=== PATIENT | female | born 1975 | race Caucasian/White ===

== ENCOUNTER 2023-10-26 13:46 | Inpatient (IN) | payer BC ==
[2023-10-26 14:25] LABS: Absolute Lymphocytes (CBC) 2.1 K/uL (0.7-4.9); MCV 91.6 fL (80-100); MPV 10.7 fL (7.6-11.3); Platelets 211 thou/uL (152-406); RBC Red Blood Cell Count 5.02 M/uL (3.86-4.86)
[2023-10-26 14:28] LABS: Protime INR 1.08
[2023-10-26 14:37] LABS: Albumin 3.6 g/dL (3.4-5.0); Bilirubin Total 1.8 mg/dL (0.2-1.0); Potassium 2.8 mEq/L (3.5-5.1); Protein, Total 8.3 g/dL (6.4-8.2)
[2023-10-26 14:39] LABS: Specific Gravity 1.026 (1.005-1.030); Transitional Epithelial <5 /HPF (None Seen); Urine Bacteria <20 /HPF (<20); Urine Bilirubin 1+ (Negative); Urine Blood 2+ (Negative); Urine Clarity Turbid (Clear); Urine Color Yellow (Yellow); Urine Glucose NEGATIVE (Negative); Urine Mucus 2+ /HPF (None Seen); Urine Protein 1+ (Negative); Urine RBC 21-50 /HPF (None Seen); Urine Urobilinogen 1+ (Normal); Urine pH 6.5 (5.0-7.0)
[2023-10-26 14:42] LABS: Specific Gravity 1.026 (1.005-1.030)
[2023-10-26] MEDS ORDERED: MORPHINE 2 MG/ML SYR ONE (15:06)
[2023-10-26] MEDS ORDERED: ONDANSETRON 4 MG/2 ML VIAL ONE ×2 (15:06→17:34)
--- NOTE | 2023-10-26 15:11 | RAD REPORT ---
EXAM DESCRIPTION: CT - Head Brain Wo Cont - 10/26/2023 3:01 pm CLINICAL HISTORY: AMS Headache, drowsiness, altered consciousness COMPARISON: No comparisons TECHNIQUE: All CT scans are performed using dose optimization technique as appropriate and may inclu de automated exposure control or mA/KV adjustment according to patient size. FINDINGS: No intracranial hemorrhage, hydrocephalus or extra-axial fluid collection.No areas of brai n edema or evidence of midline shift. The paranasal sinuses and mastoids are clear. The calvarium is intact. IMPRESSION: No acute intracranial abnormality.
--- NOTE | 2023-10-26 15:15 | RAD REPORT ---
EXAM DESCRIPTION: CTAbdomen Pelvis W Contrast - 10/26/2023 3:04 pm CLINICAL HISTORY: Abdominal pain. ABD PAIN COMPARISON: No comparisons TECHNIQUE: Biphasic CT imaging of the abdomen and pelvis was performed with 100 ml non-ionic IV cont rast. All CT scans are performed using dose optimization technique as appropriate and may include automated exposure control or mA/KV adjustment according to patient size. FINDINGS: The lung bases are clear. The liver is diffusely fatty. Cholecystectomy. Spleen, pancreas, adrenal glands and kidneys are withi n normal limits. No bowel obstruction, free air, free fluid or abscess. Mild thickening of the colon is seen particula rly the descending colon and rectosigmoid colon. The appendix is normal. No evidence of significant lymphadenopathy. No suspicious bony findings. IMPRESSION: Mild thickening of the descending colon and rectosigmoid colon likely indicates colitis. Mild diffuse fatty liver.
--- NOTE | 2023-10-26 15:27 | EDPHYS ---
Physician Documentation [facility] Name: Verónica Andraed Age: 48 yrs Sex: Female : 1975 Arrival Date: 10/26/2023 Time: 13:46 Bed 2 Private MD: ED Physician Shen Tejeda HPI: 10/26 13:55 This 48 yrs old Female presents to ER via EMS with complaints of AMS. rn 13:55 The patient presents with decreased responsiveness. Onset: The symptoms/episode rn began/occurred just prior to arrival. Associated signs and symptoms: Pertinent positives: abdominal pain. Current symptoms: In the emergency department the patient's symptoms have improved. It is unknown whether or not the patient has had similar symptoms in the past. Patient brought in by EMS for decreased responsiveness. Had walked into the GI clinic for evaluation, no seizure activity noted but then patient showed decreased level of consciousness. Patient with history of seizures but no seizure activity noted per EMS. Unknown what medication she takes. Was recently seen at outside ER and diagnosed with dehydration. EMS did not administer medication. Patient did not have a procedure or medication administered today. Patient now starting to move and respond a little bit more. Seems possibly postictal. 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 - Social history:: Smoking status: Patient reports the use of cigarette tobacco products, smokes one pack cigarettes per day. - Family history:: not pertinent. - Hospitalizations: : No recent hospitalization is reported. ROS: 13:55 Constitutional: Negative for fever, chills, and weight loss, Neck: Negative for injury, rn pain, and swelling, Cardiovascular: Negative for chest pain, palpitations, and edema, Respiratory: Negative for shortness of breath, cough, wheezing, and pleuritic chest pain, Abdomen/GI: Positive for abdominal pain Exam: 13:55 Constitutional: This is a well developed, well nourished patient who is awake, slow to rn respond, but does answer questions and follow commands. Appears postictal. Head/Face: Normocephalic, atraumatic. Eyes: Pupils equal round and reactive to light, extra-ocular motions intact. Neck: No meningismus Chest/axilla: Normal chest wall appearance and motion. Nontender with no deformity. No lesions are appreciated. Cardiovascular: Tachycardic, regular. No pulse deficits. Respiratory: No increased work of breathing, no retractions or nasal flaring. Abdomen/GI: Soft, mild suprapubic tenderness, no distention Skin: Warm, dry MS/ Extremity: Pulses equal, no cyanosis. Neuro: Awake and alert, GCS 15 Vital Signs: 13:51 BP 111 / 78; Pulse 105; Resp 18; Temp 98.4; Pulse Ox 98% on R/A; Weight 63.05 kg; aa5 Height 5 ft. 4 in. ; Pain 4/10; 14:00 BP 110 / 66; Pulse 107; Resp 24; Pulse Ox 98% on R/A; me1 15:31 BP 119 / 89; Pulse 89; Resp 12; Pulse Ox 100% on R/A; me1 16:00 BP 126 / 82; Pulse 84; Resp 17; Pulse Ox 100% on R/A; me1 17:00 BP 95 / 64; Pulse 75; Resp 15; Pulse Ox 100% on R/A; me1 18:46 BP 103 / 51; Pulse 81; Resp 17; Pulse Ox 100% on R/A; me1 19:00 BP 96 / 72; Pulse 73; Resp 16; Pulse Ox 100% on R/A; me1 13:51 Body Mass Index 23.86 (63.05 kg, 162.56 cm) aa5 13:51 Pain Scale: Adult aa5 MDM: 13:47 Patient medically screened. rn 14:04 ED course: arrived and states that he did witness a tonic-clonic seizure in the rn clinic. He is not sure why we were told that she did not have a seizure. States this is typical for her postictal period. Patient is more alert and talking better now. States that she does not take seizure medication. States she sees Dr. Valentine for neurology, thinks that these are stress-induced and not true seizures so has not put her on medication. states that she has been having some GI issues lately with diarrhea and lower abdominal pain without clear etiology and that is why she was at the GI clinic today.. 15:25 Differential Diagnosis: CVA, electrolyte abnormality, hypoglycemia, intracranial bleed, rn seizure, UTI, volume depletion. Data reviewed: vital signs, nurses notes, lab test result(s), radiologic studies, CT scan, and as a result, I will admit patient. Consideration of Admission/Observation Patient was admitted/placed on observation. Escalation of care including admission/observation considered. Management of patient was discussed with the following: Hospitalist: Will see and admit patient. Care significantly affected by the following chronic conditions: Seizure disorder. Counseling: I had a detailed discussion with the patient and/or guardian regarding the historical points, exam findings, and any diagnostic results supporting the discharge/admit diagnosis, lab results, radiology results, the need for further work-up and treatment in the hospital. Response to treatment: the patient's symptoms have mildly improved after treatment, and as a result, I will admit patient. ED course: Patient no longer postictal, near baseline but still reports nausea and persistent pain. CT shows colitis. Will admit to hospitalist service for failure of outpatient therapy as was sent home with medication from outside hospital on Tuesday. Urine shows 3+ ketones, hypokalemia, still tachycardic. Will continue to hydrate and put on antibiotics.. 10/26 13:49 Order name: CBC with Diff rn 10/26 13:49 Order name: Protime (+inr) rn 10/26 13:49 Order name: Ptt, Activated rn 10/26 13:49 Order name: Test, Urine; Complete Time: 14:46 rn 10/26 13:49 Order name: Urinalysis w/ reflexes; Complete Time: 14:46 rn 10/26 13:49 Order name: Urine Drug Screen rn 10/26 13:49 Order name: CMP rn 10/26 13:49 Order name: Lipase rn 10/26 14:12 Order name: Comprehensive Metabolic Panel; Complete Time: 14:46 EDMS 10/26 14:12 Order name: Lipase; Complete Time: 14:46 EDMS 10/26 14:12 Order name: CBC with Automated Diff; Complete Time: 14:46 EDMS 10/26 14:12 Order name: Protime (+INR); Complete Time: 14:46 EDMS 10/26 14:12 Order name: PTT, Activated Partial Thromb; Complete Time: 14:46 EDMS 10/26 14:38 Order name: Glucose, Ancillary Testing; Complete Time: 14:46 EDMS 10/26 16:21 Order name: Magnesium la1 10/26 16:24 Order name: C.difficile la1 10/26 16:24 Order name: Stool Culture la1 10/26 16:24 Order name: Ova And Parasites la1 10/26 17:14 Order name: Magnesium EDMS 10/26 13:49 Order name: CT Head Brain wo Cont; Complete Time: 15:17 rn 10/26 13:49 Order name: CT Abd/Pelvis - IV Contrast Only; Complete Time: 15:17 rn 10/26 13:49 Order name: IV Start; Complete Time: 14:21 rn 10/26 13:49 Order name: Labs collected and sent; Complete Time: 14:21 rn 10/26 13:49 Order name: Glucose Level; Complete Time: 14:27 rn 10/26 13:49 Order name: Cardiac monitoring; Complete Time: 14:27 rn 10/26 13:49 Order name: O2 Sat Monitoring; Complete Time: 14:21 rn Administered Medications: 14:56 Drug: Ondansetron IVP 4 mg IVP once; over 2 minutes Route: IVP; Site: left antecubital; ll1 15:38 Follow up: Response: No adverse reaction; No change in condition me1 14:56 Drug: morphine IVP or IV 2 mg IVP once over 4 mins {Note: Pain 9/10, RASS 0.} Route: ll1 IVP; Infused Over: 4 mins; Site: left antecubital; 15:38 Follow up: Response: No adverse reaction; No change in condition me1 15:37 Drug: Piperacillin-Tazobactam IVPB 3.375 grams IVPB once over 60 mins; (mix in NS 100 me1 mL) Route: IVPB; Infused Over: 60 mins; Site: left antecubital; 16:37 Follow up: Response: No adverse reaction; IV Status: Completed infusion aa5 16:58 Drug: Pantoprazole IVP 40 mg IVP once Route: IVP; Site: left antecubital; aa5 17:37 Follow up: Response: No adverse reaction aa5 16:59 Drug: Potassium Chloride IV 20 mEq IV at calculated rate once; administer over 1-2 aa5 hours Route: IV; Rate: calculated rate; Site: left antecubital; 18:57 Follow up: Response: No adverse reaction; IV Status: Completed infusion aa5 16:59 Drug: NS 0.9% IV 1000 ml IV at 1000 ml once Route: IV; Rate: 1000 ml; Site: left aa5 antecubital; 19:07 Follow up: IV Status: Completed infusion me1 19:08 Follow up: Response: No adverse reaction me1 16:59 Drug: NS 0.9% IV 1000 ml IV at 125 ml/hr continuous Route: IV; Rate: 125 ml/hr; Site: aa5 left antecubital; 19:12 Follow up: IV Status: Completed infusion me1 17:00 Not Given (on back order per pharmacyy): [id number] mg IVP once aa5 17:21 Drug: morphine IVP or IV 4 mg IVP once over 4 mins Route: IVP; Infused Over: 4 mins; aa5 Site: left antecubital; 17:37 Follow up: Response: No adverse reaction; Pain is decreased aa5 17:22 Drug: Ondansetron IVP 4 mg IVP once; over 2 minutes Route: IVP; Site: left antecubital; aa5 17:36 Follow up: Response: No adverse reaction; Nausea is decreased aa5 18:57 Drug: Potassium Chloride IV 20 mEq IV at calculated rate once; administer over 1-2 aa5 hours Route: IV; Rate: calculated rate; Site: left antecubital; 19:11 Follow up: IV Status: Completed infusion; Patient is demanding to leave AMA. New order me1 for PO potassium ordered in [facility] by Dr Carrizales. Disposition Summary: 10/26/23 15:27 Hospitalization Ordered Notes: Hospitalization Status: Inpatient Admission rn Provider: Brown Tejeda rn Condition: Stable rn Problem: new rn Symptoms: have worsened rn Bed/Room Type: Standard rn Location: Telemetry/MedSurg (Inpatient)(10/26/23 18:23) bd Room Assignment: (10/26/23 19:08) rv1 Diagnosis - Left sided colitis rn - Muscle weakness (generalized) rn - Hypokalemia rn - Dehydration rn - Other seizures rn Forms: - Medication Reconciliation Form rn - SBAR form rn - Leadership Thank You Letter rn Signatures: Dispatcher [employer] EDVerona Dougherty bd Shen Tejeda MD MD rn Calderon, Audri, RN RN aa5 Rodri Javier, WOOL PULLER-C WOOL PULLER-Giovanni1 Ellie Solorzano, RN RN ll1 Karol Pagan rv1 Aure Ross, RN RN me1 Corrections: (The following items were deleted from the chart) 14:00 13:50 Allergies: Unable to obtain; 1 aa5 14:00 13:50 PSHx: Unable to Obtain; [facility] aa5 16:16 15:27 Telemetry/MedSurg (observation) rn bd 16:16 15:27 rn bd 18:23 16:16 [facility] ER HOLD bd bd 18:23 16:16 ERHOLD- bd bd 18:25 18:23 431 bd bd 19:08 18:25 223 bd rv1
--- NOTE | 2023-10-26 15:27 | ER ---
Nurse's Notes 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 No ll1 specific seizure activity noted by EMS. Trying to speak to us upon arrival. Seems postictal. Reports abdominal pain EMS states: HR 110's, vitals otherwise normal. BS 88. Couldn't get IV. Ebola Screen: Patient denies travel to an Ebola-affected area in the 21 days before illness onset. Initial Sepsis Screen: Does the patient meet any 2 criteria? No. Patient's initial sepsis screen is negative. Does the patient have a suspected source of infection? Yes: Acute abdominal pain. Risk Assessment: Do you want to hurt yourself or someone else? Patient reports no desire to harm self or others. Onset of symptoms was October 26, 2023. 13:51 Method Of Arrival: EMS ll1 13:51 Acuity: ROHAN 2 ll1 14:00 Coronavirus screen: Vaccine status: Patient reports being unvaccinated. Client denies aa5 travel out of the [place] in the last 14 days. At this time, the client does not indicate any symptoms associated with coronavirus-19. Triage Assessment: 13:53 General: Appears uncomfortable, ill, Behavior is cooperative, listless. Pain: Complains ll1 of pain in abdomen Quality of pain is described as aching, crampy. Neuro: Level of Consciousness is awake, obeys commands, listless, post ictal, Oriented to person, Weakness Speech is slurred, Facial symmetry appears normal, Reports weakness AMS. GI: Reports lower abdominal pain, upper abdominal pain, cramping. 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 - Social history:: Smoking status: Patient reports the use of cigarette tobacco products, smokes one pack cigarettes per day. - Family history:: not pertinent. - Hospitalizations: : No recent hospitalization is reported. Screenin:40 [facility] ED Fall Risk Assessment (Adult) History of falling in the last 3 months, me1 including since admission No falls in past 3 months (0 pts) Confusion or Disorientation No (0 pts) Intoxicated or Sedated No (0 pts) Impaired Gait No (0 pts) Mobility Assist Device Used No (0 pt) Altered Elimination No (0 pt) Score/Fall Risk Level 0 - 2 = Low Risk Maintained a safe environment, Provided non-skid footwear, Hourly rounding (assess needs \\T\\ fall precautionary measures) done. Abuse screen: Denies threats or abuse. Nutritional screening: No deficits noted. Tuberculosis screening: No symptoms or risk factors identified. Assessment: 14:57 Reassessment: No changes from previously documented assessment. Patient and/or family ll1 updated on plan of care and expected duration. Pain level reassessed. 17:41 General: Appears comfortable, well groomed, well developed, well nourished, Behavior is me1 calm, cooperative, appropriate for age, Reports reports knowing she was going to have a seizure before it happened at the GI doctor's office earlier today. At this time speech is slow but clear. Pain: Denies pain. Neuro: Level of Consciousness is awake, alert, obeys commands, Oriented to person, place, time, situation, Appropriate for age. Cardiovascular: Capillary refill < 3 seconds Patient's skin is warm and dry. Respiratory: Airway is patent Respiratory effort is even, unlabored, Respiratory pattern is regular, symmetrical. GI: Reports upper abdominal pain, diarrhea, nausea. 19:05 General: Patient wants to go home. Discussed the need for admission, verbalized me1 understanding but still wants to go home. Called Dr Carrizales to inform him. He is coming to see the patient. . Vital Signs: 13:51 BP 111 / 78; Pulse 105; Resp 18; Temp 98.4; Pulse Ox 98% on R/A; Weight 63.05 kg; aa5 Height 5 ft. 4 in. ; Pain 4/10; 14:00 BP 110 / 66; Pulse 107; Resp 24; Pulse Ox 98% on R/A; me1 15:31 BP 119 / 89; Pulse 89; Resp 12; Pulse Ox 100% on R/A; me1 16:00 BP 126 / 82; Pulse 84; Resp 17; Pulse Ox 100% on R/A; me1 17:00 BP 95 / 64; Pulse 75; Resp 15; Pulse Ox 100% on R/A; me1 18:46 BP 103 / 51; Pulse 81; Resp 17; Pulse Ox 100% on R/A; me1 19:00 BP 96 / 72; Pulse 73; Resp 16; Pulse Ox 100% on R/A; me1 13:51 Body Mass Index 23.86 (63.05 kg, 162.56 cm) aa5 13:51 Pain Scale: Adult aa5 ED Course: 13:47 Patient arrived in ED. rn 13:47 Shen Tejeda MD is Attending Physician. rn 13:50 Arm band placed on Patient placed in an exam room, on a stretcher. ll1 13:53 Triage completed. ll1 14:01 Aure Ross, WESLEY is Primary Nurse. me1 14:21 CBC with Diff Sent. bc6 14:21 Ptt, Activated Sent. bc6 14:21 Protime (+inr) Sent. bc6 14:21 CBC with Automated Diff Sent. me1 14:21 Protime (+INR) Sent. me1 14:21 PTT, Activated Partial Thromb Sent. me1 14:21 Comprehensive Metabolic Panel Sent. me1 14:21 Lipase Sent. me1 14:21 CMP Sent. me1 14:21 Lipase Sent. me1 14:21 Inserted saline lock: 22 gauge in left antecubital area, using aseptic technique. Blood bc6 collected. 14:21 Test, Urine Sent. me1 14:21 Urinalysis w/ reflexes Sent. me1 14:21 Urine Drug Screen Sent. me1 14:21 Protime (+inr) Sent. me1 14:21 Ptt, Activated Sent. me1 14:21 CBC with Diff Sent. me1 14:27 CT Abd/Pelvis - IV Contrast Only Sent. me1 15:02 CT Head Brain wo Cont In Process Unspecified. EDMS 15:06 CT Abd/Pelvis - IV Contrast Only In Process Unspecified. EDMS 15:26 Brown Tejeda MD is Hospitalizing Provider. rn 17:40 Patient has correct armband on for positive identification. Bed in low position. Call me1 light in reach. Side rails up X 1. Side rails up X2. Provided Education on: POC. Verbalized understanding. . 17:40 No provider procedures requiring assistance completed. me1 19:28 IV discontinued, intact, bleeding controlled, No redness/swelling at site. Pressure me1 dressing applied. Administered Medications: 14:56 Drug: Ondansetron IVP 4 mg IVP once; over 2 minutes Route: IVP; Site: left antecubital; ll1 15:38 Follow up: Response: No adverse reaction; No change in condition me1 14:56 Drug: morphine IVP or IV 2 mg IVP once over 4 mins {Note: Pain 9/10, RASS 0.} Route: ll1 IVP; Infused Over: 4 mins; Site: left antecubital; 15:38 Follow up: Response: No adverse reaction; No change in condition me1 15:37 Drug: Piperacillin-Tazobactam IVPB 3.375 grams IVPB once over 60 mins; (mix in NS 100 me1 mL) Route: IVPB; Infused Over: 60 mins; Site: left antecubital; 16:37 Follow up: Response: No adverse reaction; IV Status: Completed infusion aa5 16:58 Drug: Pantoprazole IVP 40 mg IVP once Route: IVP; Site: left antecubital; aa5 17:37 Follow up: Response: No adverse reaction aa5 16:59 Drug: Potassium Chloride IV 20 mEq IV at calculated rate once; administer over 1-2 aa5 hours Route: IV; Rate: calculated rate; Site: left antecubital; 18:57 Follow up: Response: No adverse reaction; IV Status: Completed infusion aa5 16:59 Drug: NS 0.9% IV 1000 ml IV at 1000 ml once Route: IV; Rate: 1000 ml; Site: left aa5 antecubital; 19:07 Follow up: IV Status: Completed infusion me1 19:08 Follow up: Response: No adverse reaction me1 16:59 Drug: NS 0.9% IV 1000 ml IV at 125 ml/hr continuous Route: IV; Rate: 125 ml/hr; Site: aa5 left antecubital; 19:12 Follow up: IV Status: Completed infusion me1 17:00 Not Given (on back order per pharmacyy): [id number] mg IVP once aa5 17:21 Drug: morphine IVP or IV 4 mg IVP once over 4 mins Route: IVP; Infused Over: 4 mins; aa5 Site: left antecubital; 17:37 Follow up: Response: No adverse reaction; Pain is decreased aa5 17:22 Drug: Ondansetron IVP 4 mg IVP once; over 2 minutes Route: IVP; Site: left antecubital; aa5 17:36 Follow up: Response: No adverse reaction; Nausea is decreased aa5 18:57 Drug: Potassium Chloride IV 20 mEq IV at calculated rate once; administer over 1-2 aa5 hours Route: IV; Rate: calculated rate; Site: left antecubital; 19:11 Follow up: IV Status: Completed infusion; Patient is demanding to leave AMA. New order me1 for PO potassium ordered in [facility] by Dr Carrizales. Medication: 17:41 VIS not applicable for this client. aa5 Intake: Outcome: 15:27 Decision to Hospitalize by Provider. rn 19:28 AMA AMA form signed me1 19:28 Condition: stable 19:28 Instructed on the need for admit, 19:29 Patient left the ED. 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 ll1 No specific seizure activity noted. Trying to speak to us upon arrival. Seems postictal. Reports abdominal pain EMS states: HR 110's, vitals otherwise normal. BS 88. Couldn't get IV ll1 :14 17:41 General: Appears comfortable, well groomed, well developed, well nourished, me1 Behavior is calm, cooperative, appropriate for age, Reports reports knowing she was going to have a seizure before it happened at the GI doctor's office earlier today. At this time speech is slow but clear. [facility] 19: 17:41 Pain: Denies pain. [place] [id number] 19: 17:41 Neuro: Level of Consciousness is awake, alert, obeys commands, Oriented to nc1 person, place, time, situation, Appropriate for age [facility] : 17:41 Cardiovascular: Capillary refill < 3 seconds Patient's skin is warm and dry. [place] [id number] :14 17:41 Respiratory: Airway is patent Respiratory effort is even, unlabored, Respiratory [facility] pattern is regular, symmetrical, [facility] : 17:41 GI: Reports upper abdominal pain, diarrhea, nausea, [place] [id number] 19:16 14:00 BP 110 / 66; Pulse 107bpm; Resp 24bpm; Pulse Ox 98% RA; [place] [id number] 19:16 16:00 BP 126 / 82; Pulse 84bpm; Resp 17bpm; Pulse Ox 100% RA; [place] [id number] 19:16 17:00 BP 95 / 64; Pulse 75bpm; Resp 15bpm; Pulse Ox 100% RA; [place] [id number] 19:16 15:31 BP 119 / 89; Pulse 89bpm; Resp 12bpm; Pulse Ox 100% RA; [place] [id number] 19:16 17:44 LMP N/A - Hysterectomy, Not [place] [id number] 19:16 18:46 BP 103 / 51; Pulse 81bpm; Resp 17bpm; Pulse Ox 100% RA; nc1 [facility] 19:16 19:00 BP 96 / 72; Pulse 73bpm; Resp 16bpm; Pulse Ox 100% RA; [place] [id number] 19:17 17:40 Patient has correct armband on for positive identification. Bed in low position. nc1 Call light in reach. Side rails up X 1. [facility] 19:17 17:40 Side rails up X2. [place] [id number] 19:17 17:40 Provided Education on: POC. Verbalized understanding. . [place] [id number] 19:17 17:40 [facility] ED Fall Risk Assessment (Adult) History of falling in the last 3 months, me1 including since admission No falls in past 3 months (0 pts) Confusion or Disorientation No (0 pts) Intoxicated or Sedated No (0 pts) Impaired Gait No (0 pts) Mobility Assist Device Used No (0 pt) Altered Elimination No (0 pt) Score/Fall Risk Level 0 - 2 = Low Risk Maintained a safe environment, Provided non-skid footwear, Hourly rounding (assess needs \\T\\ fall precautionary measures) done, [facility] 19:17 17:40 Abuse screen: Denies threats or abuse. [place] [id number] 19:17 17:40 Tuberculosis screening: No symptoms or risk factors identified. [place] [id number] 19:17 17:40 Nutritional screening: No deficits noted. [place] [id number] 19:18 17:40 No provider procedures requiring assistance completed. [place] [id number]
[2023-10-26] MEDS ORDERED: PIPERACIL/TAZO 3.375 GM VIAL IV ONE (15:42)
[2023-10-26] MEDS ORDERED: NA CHLORIDE 0.9% 100 ML ONE (15:42)
--- NOTE | 2023-10-26 16:37 | P.HP ---
Certification for Inpatient Patient admitted to: Inpatient With expected LOS: >2 Midnights Patient will require the following post-hospital care: None Practitioner: I am a practitioner with admitting privileges, knowledge of patient current condition, hospital course, and medical plan of care. Services: Services provided to patient in accordance with Admission requirements found in Title 42 Section 412.3 of the Code of Federal Regulations Patient History Date of Service: 10/26/23 Reason for admission: Intractable vomiting, colitis History of Present Illness: 48-year-old female with history of psychogenic seizures, mitral valve prolapse, diverticulosis, gastritis with ulcers in the past presents to the emergency department chief complaint of seizure. She reports that she was seen on October 23 at [facility] for GI symptoms and discharged with prescription for Tylenol 3, she was at her GI doctors office for an urgent appointment with possible EGD when she had a seizure in the waiting room. Patient and family report that she has a history of nonepileptic seizures and she has had multiple EEGs and other work-up, told by her neurologist that she has stress-induced nonepileptic seizures and she is not on medications for seizures. In early September she was hospitalized at [facility] for intractable vomiting, acute kidney injury, she has been dealing with ongoing GI issues over the course of the last month but worse in the past 1 week with persistent nausea, vomiting and diarrhea. Of note she did take clindamycin prophylactically for dental procedure October 18. She reports persistent vomiting, 5-10 episodes of watery diarrhea daily for the past few days as well as some dark tarry stool. She was evaluated in the emergency department her labs are significant for hemoglobin of 16.2 hematocrit 46 potassium 2.[address] head was negative for acute findings CT abdomen pelvis with IV contrast was performed which showed mild thickening of the ascending colon and rectosigmoid colon likely indicating colitis. ED provider wishes to admit for intractable nausea/vomiting, colitis. - Past Medical/Surgical History -: Psychogenic seizures -: Diverticulosis -: Gastritis -: Cholecystectomy -: x3 Psychosocial/ Personal History: Lives at home with her , is unemployed - Family History Family History: Reviewed- Non-Contributory - Social History Smoking Status: Current every day smoker Alcohol use: No CD- Drugs: No Caffeine use: Yes Place of Residence: Home Review of Systems 10-point ROS is otherwise unremarkable Gastrointestinal: Nausea, Vomiting, Abdominal Pain, Diarrhea Physical Examination - Physical Exam General: Alert, In no apparent distress, Oriented x3 HEENT: Atraumatic, PERRLA, Mucous membr. moist/pink Neck: Supple, 2+ carotid pulse no bruit Respiratory: Clear to auscultation bilaterally, Normal air movement Cardiovascular: Regular rate/rhythm, Normal S1 S2 Gastrointestinal: No rebound, No guarding, Tenderness (Mild generalized abdominal tenderness) Musculoskeletal: No tenderness Integumentary: No rashes Neurological: Normal gait, Normal speech, Normal strength at 5/5 x4 extr, Normal tone - Studies Laboratory Data (last 24 hrs) 10/26/23 10/26/23 10/26/23 14:05 14:05 14:05 WBC 6.30 Hgb 16.2 H Hct 46.0 H Plt Count 211 PT 11.9 INR 1.08 APTT 36.0 Sodium 137 Potassium 2.8 L BUN 18 Creatinine 0.97 Glucose 92 Total Bilirubin 1.8 H AST 22 ALT 38 Alkaline Phosphatase 109 Lipase 67 Assessment and Plan - Plan Assessment: Intractable vomiting Colitis Diarrhea, melena Seizure disorder Hypokalemia Plan: Intractable vomiting Colitis Diarrhea, melena Reports ongoing GI issues, worse over the last month and especially last 1 week Having 5-10 episodes of diarrhea daily, watery stools sometimes black/tarry Not tolerating anything by mouth for the past 2 to 3 days, frequent vomiting Was at GI doctor for urgent scope when she had seizure in the [facility] IVF, antibiotics, as needed pain medications and antiemetics GI consultation C. difficile, stool tests ordered Seizure disorder Reports extensive testing including multiple EEGs without epileptiform activity Reported stress-induced seizures per her neurologist no medications taken daily Monitor for seizure-like activity, consider neurology consult/anti epileptics if seizure activity persists Hypokalemia Potassium replaced, magnesium level ordered Protocols in place DVT PPX: Lovenox Code status: Full Discharge Plan: Home Plan to discharge in: 72 Hours - Advance Directives Does patient have a Living Will: No Does patient have a Durable POA for Healthcare: No - Code Status/Comfort Care Code Status Assessed: Yes (Full code) Critical Care: No Time Spent Managing Pts Care (In Minutes): 70
[2023-10-26] MEDS ORDERED: PANTOPRAZOLE 40 MG INJ ONE (17:02)
[2023-10-26] MEDS ORDERED: KCL 20 MEQ/100 mL IVPB 100 ML IV ONE ×2 (17:02→19:12)
[2023-10-26] MEDS ORDERED: NA CHLORIDE 0.9% 2,000 ML ONE (17:03)
[2023-10-26] MEDS ORDERED: MORPHINE 4 MG/ML SYR ONE (17:33)
[2023-10-26 17:50] VITALS: BMI 23.8
[2023-10-26] MEDS ORDERED: NA CHLORIDE 0.9% 1,000 ML IV SCH (18:10)
[2023-10-26] MEDS ORDERED: SODIUM CHLORIDE 0.9% 10ML INJ IV PRN (18:10)
[2023-10-26] MEDS ORDERED: PROMETHAZINE INJ 25 MG/ML AMP IV PRN (18:10)
[2023-10-26] MEDS ORDERED: ONDANSETRON 4 MG/2 ML VIAL IV PRN (18:10)
[2023-10-26] MEDS ORDERED: PIPER TAZO 3.375 GM in NA CHLORIDE 0.9% 100 ML IV SCH (18:30)
[2023-10-26] MEDS ORDERED: POTASSIUM 25 MEQ EFFERV TAB PO ONE (19:05)
[2023-10-26] MEDS ORDERED: POTASSIUM 25 MEQ EFFERV TAB ONE (19:33)
[2023-10-26] MEDS ORDERED: ENOXAPARIN 40 MG/0.4 ML SQ SCH (20:00)
[2023-10-26 20:11] VITALS: TEMP 98.4
[2023-10-26 20:19] VITALS: O2SAT 100
[2023-10-26 20:26] VITALS: BP 96/72
[2023-10-26] MEDS ORDERED: PANTOPRAZOLE 40 MG INJ IVP SCH (21:00)
--- NOTE | 2023-10-27 05:56 | P.DS ---
Admission Date: 10/26/23 Discharge Date: 10/26/23 Disposition: AMA-LEFT AGAINST MEDICAL ADVIC Discharge Condition: GOOD Reason for Admission: Intractable vomiting, colitis Brief History of Present Illness: 48-year-old female with history of psychogenic seizures, mitral valve prolapse, diverticulosis, gastritis with ulcers in the past presents to the emergency department chief complaint of seizure. She reports that she was seen on October 23 at [facility] for GI symptoms and discharged with prescription for Tylenol 3, she was at her GI doctors office for an urgent appointment with possible EGD when she had a seizure in the waiting room. Patient and family report that she has a history of nonepileptic seizures and she has had multiple EEGs and other work-up, told by her neurologist that she has stress-induced nonepileptic seizures and she is not on medications for seizures. In early September she was hospitalized at [facility] for intractable vomiting, acute kidney injury, she has been dealing with ongoing GI issues over the course of the last month but worse in the past 1 week with persistent nausea, vomiting and diarrhea. Of note she did take clindamycin prophylactically for dental procedure October 18. She reports persistent vomiting, 5-10 episodes of watery diarrhea daily for the past few days as well as some dark tarry stool. She was evaluated in the emergency department her labs are significant for hemoglobin of 16.2 hematocrit 46 potassium 2.[address] head was negative for acute findings CT abdomen pelvis with IV contrast was performed which showed mild thickening of the ascending colon and rectosigmoid colon likely indicating colitis. ED provider wishes to admit for intractable nausea/vomiting, colitis. Hospital Course: Patient left AMA overnight, I did not have the opportunity to discuss risks of leaving AMA with patient. Vital Signs/Physical Exam: Temp Pulse Resp BP Pulse Ox 98.4 F 73 16 96/72 10/26/23 13:51 10/26/23 19:00 10/26/23 19:00 10/26/23 19:00 Laboratory Data at Discharge: WBC 6.30 thou/uL (4.3-10.9) 10/26/23 14:05 Hgb 16.2 g/dL (12.0-15.0) H 10/26/23 14:05 Hct 46.0 % (36.0-45.0) H 10/26/23 14:05 Plt Count 211 thou/uL (152-406) 10/26/23 14:05 PT 11.9 SECONDS (9.5-12.5) 10/26/23 14:05 INR 1.08 10/26/23 14:05 APTT 36.0 SECONDS (24.3-36.9) 10/26/23 14:05 Sodium 137 mEq/L (136-145) 10/26/23 14:05 Potassium 2.8 mEq/L (3.5-5.1) L 10/26/23 14:05 BUN 18 mg/dL (7-18) 10/26/23 14:05 Creatinine 0.97 mg/dL (0.55-1.02) 10/26/23 14:05 Glucose 92 mg/dL (74-106) 10/26/23 14:05 Magnesium 2.4 mg/dL (1.6-2.4) 10/26/23 14:05 Total Bilirubin 1.8 mg/dL (0.2-1.0) H 10/26/23 14:05 AST 22 U/L (15-37) 10/26/23 14:05 ALT 38 U/L (13-56) 10/26/23 14:05 Alkaline Phosphatase 109 U/L (45-117) 10/26/23 14:05 Lipase 67 U/L (13-75) 10/26/23 14:05 Followup: Aileen Pemberton MD [Primary Care Provider] -
== END 2023-10-26 19:29 | disposition left against medical advice (07) | DRG 386 ==
LOC: ER 13:46 → ERHOLD 16:26
PROVIDERS: ADMIT Hospitalist; ATTEND Hospitalist
DX: K51.50 Left sided colitis without complications (principal); K92.1 Melena; E86.0 Dehydration; E87.6 Hypokalemia; G40.909 Epilepsy, unspecified, not intractable, without status epilepticus; F17.210 Nicotine dependence, cigarettes, uncomplicated; Z88.1 Allergy status to other antibiotic agents; Z56.0 Unemployment, unspecified; Z88.8 Allergy status to other drugs, medicaments and biological substances; Z53.29 Procedure and treatment not carried out because of patient's decision for other reasons; Z90.49 Acquired absence of other specified parts of digestive tract; Z90.710 Acquired absence of both cervix and uterus
CPT/HCPCS: 36415; 70450; 74177; 80053; 81001; 81025; 82947; 83690; 83735; 85025; 85610; 85730; C9113; J2270; J2405; J2543; J3480; J7030; Q9967

== ENCOUNTER 2025-09-06 12:35 | Emergency (ER) | payer BC ==
[2025-09-06] MEDS ORDERED: TENECTEPLASE 50 MG/10 ML VIAL IV ONE (12:50)
--- NOTE | 2025-09-06 12:59 | RAD REPORT ---
EXAM: CT Ct Stroke Brain Wo Cont HISTORY: STROKE ALERT COMPARISON: 10/26/2023 TECHNIQUE: Multiple contiguous axial images were obtained for a CT of the brain without contrast. Sag ittal and coronal reformats were performed. One or more of the following dose reduction techniques were used: Automated exposure control, adjus tment of the mA and kV according to patient size, and iterative reconstruction. Unless otherwise specified, incidental findings do not require dedicated imaging follow-up. FINDINGS: No evidence of hydrocephalus, intracranial hemorrhage, or extra-axial fluid collection. The brain is normal in morphology. The calvarium is intact. The visualized paranasal sinuses and mastoid air cells are essentially clear . IMPRESSION: No evidence of acute intracranial abnormality. THIS REPORT CONTAINS FINDINGS THAT MAY BE CRITICAL TO PATIENT CARE. The findings were verbally commun icated via telephone to Corwin Becerra MD on 09/06/2025 12:56 PM.
[2025-09-06 13:01] LABS: Absolute Lymphocytes (CBC) 2.2 K/uL (0.7-4.9); Hematocrit 46.3 % (36.0-45.0); Hemoglobin 15.5 g/dL (12.0-15.0); MCH 31.7 pg (27.0-35.0); MCHC 33.4 g/dL (32.0-36.0); MCV 94.8 fL (80-100); MPV 9.8 fL (7.6-11.3); Nucleated RBC Absolute Count 0.0 (0-0); Nucleated Red Blood Cells % 0.1 % (0-0); RBC Red Blood Cell Count 4.89 M/uL (3.86-4.86); White Blood Count 6.80 thou/uL (4.3-10.9)
[2025-09-06 13:09] LABS: PT Prothrombin Time 12.5 SECONDS (10-13.0); Protime INR 1.11
[2025-09-06 13:32] LABS: Albumin 3.1 g/dL (3.4-5.0); Albumin/Globulin Ratio 0.7 (1.1-1.8); Alkaline Phosphatase 110 U/L (45-117); Anion Gap 9.6 mEq/L (5.0-15.0); BUN Blood Urea Nitrogen 5 mg/dL (7-18); Bilirubin Indirect, Calculated 0.7 mg/dL (0.2-0.8); Globulin 4.2 g/dL (2.3-3.5); Glucose Level 87 mg/dL (74-106); HDL Cholesterol 70 mg/dL (40-60); LDL Cholesterol, Calculated 127 mg/dL (<130); LDL Cholesterol,Calc NonReport 127; Magnesium 1.8 mg/dL (1.6-2.4); NT PRO-BNP 80 pg/mL (<125); Potassium 3.6 mEq/L (3.5-5.1); Troponin High Sensitivity 3.4 pg/mL (<58.9)
[2025-09-06 13:33] LABS: ALT/SGPT < 14 U/L (13-56); AST/SGOT < 10 U/L (15-37); C-Reactive Protein < 2.90 mg/L (<3.00)
--- NOTE | 2025-09-06 13:44 | RAD REPORT ---
EXAMINATION: CT Neck Angio CLINICAL INDICATION: Female, 50 years old. [facility] MAIN PAIN Bed Name: 18 TECHNIQUE: Axial CT images were obtained from the aortic arch to the skull base after intravenous con trast utilizing angiographic protocol. Multiplanar reformats, as well as 3D post-processing (maximum intensity projection images, volume rendered images and/or shaded surface rendered images) w ere generated and reviewed. One or more of the following dose reduction techniques were used: Automated exposure control, adjustment of the mA and/or kV according to patient size, and/or iterativ e reconstruction. Unless otherwise specified, incidental findings do not require dedicated imaging follow-up. COMPARISON: No prior exam. FINDINGS: AORTA: The imaged aortic arch is normal. Variant anatomy with left vertebral artery arising directly from the arch as the third vessel. CCA: No artifact The common carotid arteries are patent and normal in caliber. ICA/ECA: Bilateral internal and external carotid arteries are patent with mild atherosclerotic calcif ic plaque at the left carotid bifurcation. There is no significant internal carotid artery stenosis. VERTEBRAL: The cervical vertebral arteries are patent to the skull base. Vertebral arteries are codom inant. SOFT TISSUE: No significant neck soft tissue abnormalities. The visualized lung apices are clear. 3D images confirm these findings. IMPRESSION: No significant flow abnormality of the neck vessels is identified. NASCET criteria used to quantify ICA stenosis, with the following grading scheme: Mild 0-49% stenosis Moderate 50-69% stenosis Severe 70-99% stenosis Reference: [place] Symptomatic Carotid Endarterectomy Trial Collaborators; Matt ALLEN, Riri DW, Francine RB, et al. Beneficial effect of carotid endarterectomy in symptomatic patients with high-grade carotid stenosis. N Engl J Med. 1990Jul 05;325(7):445-53.
--- NOTE | 2025-09-06 13:45 | RAD REPORT ---
EXAMINATION: CTA HEAD CLINICAL INDICATION: Female, 50 years old. STROKE TECHNIQUE: Axial CT images were obtained through the head after intravenous contrast utilizing angiog raphic protocol with 3D post-processing (maximum intensity projection images, volume rendered images and/or shaded surface rendered images). One or more of the following dose reduction technique s were used: Automated exposure control, adjustment of the mA and/or kV according to patient size, and/or iterative reconstruction. Unless otherwise specified, incidental findings do not require dedic ated imaging follow-up. COMPARISON: No prior exam. FINDINGS: ICA: The petrous, cavernous, and supraclinoid segments of the bilateral internal carotid arteries are normal. CARI: Anterior cerebral arteries are normal bilaterally. The anterior communicating artery is patent. MCA: Middle cerebral arteries are normal bilaterally. M[employer]MER: Posterior cerebral arteries are normal bilaterally. Vertebrobasilar: The vertebral arteries are patent. The basilar artery is normal in appearance. 3D images confirm these findings. IMPRESSION: No evidence of large vessel occlusion or hemodynamically significant stenosis.
--- NOTE | 2025-09-06 13:47 | RAD REPORT ---
EXAM: CT Head Brain Wo Cont HISTORY: SEIZURE. Right-sided weakness. Slurred speech. POST TNK COMPARISON: Noncontrast head CT of earlier the same day TECHNIQUE: Multiple contiguous axial images were obtained for a CT of the brain without contrast. Sag ittal and coronal reformats were performed. One or more of the following dose reduction techniques were used: Automated exposure control, adjus tment of the mA and kV according to patient size, and iterative reconstruction. Unless otherwise specified, incidental findings do not require dedicated imaging follow-up. FINDINGS: No evidence of hydrocephalus, intracranial hemorrhage, or extra-axial fluid collection. The brain is normal in morphology. The calvarium is intact. The visualized paranasal sinuses and mastoid air cells are essentially clear . IMPRESSION: No evidence of acute intracranial hemorrhage. No significant interval change.
--- NOTE | 2025-09-06 13:54 | RAD REPORT ---
EXAMINATION: ONE VIEW CHEST XR CLINICAL INDICATION: Female, 50 years old.,COUGH TECHNIQUE: Frontal chest projection is submitted. Examination is limited by patient positioning and t echnique. COMPARISON: No prior exam. FINDINGS: The lungs are well inflated and clear. No pneumothorax or sizable effusion. The heart is normal in s ize. Mediastinal contours are unremarkable. IMPRESSION: No acute intrathoracic abnormalities.
[2025-09-06] MEDS ORDERED: LEVETIRACETAM 500 MG/5 ML VIAL IV ONE (13:59)
[2025-09-06] MEDS ORDERED: FAMOTIDINE 20 MG/2 ML VIAL IV ONE (14:00)
[2025-09-06] MEDS ORDERED: NA CHLORIDE 0.9% 100 ML ONE (14:00)
[2025-09-06] MEDS ORDERED: FOLIC ACID 5 MG/ML VIAL ONE (14:00)
[2025-09-06] MEDS ORDERED: NA CHLORIDE 0.9% 1,000 ML ONE (14:01)
--- NOTE | 2025-09-06 14:37 | EDPHYS ---
Physician Documentation [facility] Name: Verónica Andrade Age: 50 yrs Sex: Female : 1975 Arrival Date: 09/06/2025 Time: 12:35 Bed 18 Private MD: ED Physician Corwin Becerra HPI: 09/06 13:20 This 50 yrs old Female presents to ER via EMS with complaints of S/S of krupa Possible Stroke. 13:20 The patient's problem is reported as dysphasia, incoherent speech, expressive aphasia, krupa weakness, in the right upper extremity, in the right lower extremity. Onset: The symptoms/episode began/occurred at 12:00. Duration: This was a single incident. Context: the episode(s) was witnessed, DOCTOR, FAMILY. The symptoms are alleviated by nothing. The symptoms are aggravated by nothing. Associated signs and symptoms: Pertinent positives: headache, weakness, RIGTH ARM, AND LEG. Severity of symptoms: At their worst the symptoms were mild moderate in the emergency department the symptoms are unchanged. Patient's baseline: Neuro: alert and fully oriented. The patient has not experienced similar symptoms in the past. 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 - Infectious Disease History:: Denies. - Social history:: Smoking status: Patient denies any tobacco usage or history of. - Family history:: not pertinent. ROS: 13:20 Constitutional: Negative for fever, chills, and weight loss, Eyes: Negative for injury, krupa pain, redness, and discharge, ENT: Negative for injury, pain, and discharge, Neck: Negative for injury, pain, and swelling, Cardiovascular: Negative for chest pain, palpitations, and edema, Respiratory: Negative for shortness of breath, cough, wheezing, and pleuritic chest pain, Abdomen/GI: Negative for abdominal pain, nausea, vomiting, diarrhea, and constipation, Back: Negative for injury and pain, : Negative for injury, bleeding, discharge, and swelling, MS/Extremity: Negative for injury and deformity, Skin: Negative for injury, rash, and discoloration, Psych: Negative for depression, anxiety, suicide ideation, homicidal ideation, and hallucinations, Allergy/Immunology: Negative for hives, rash, and allergies, Endocrine: Negative for neck swelling, polydipsia, polyuria, polyphagia, and marked weight changes, Hematologic/Lymphatic: Negative for swollen nodes, abnormal bleeding, and unusual bruising, 13:20 Neuro: Positive for speech changes, weakness, of the right arm and right leg, Exam: 13:18 ECG was reviewed by the Attending Physician. krupa 13:20 Radiologist reports: NEGATIVE krupa 13:20 Constitutional: This is a well developed, well nourished patient who is awake, alert, and in no acute distress. Head/Face: Normocephalic, atraumatic. Eyes: Pupils equal round and reactive to light, extra-ocular motions intact. Lids and lashes normal. Conjunctiva and sclera are non-icteric and not injected. Cornea within normal limits. Periorbital areas with no swelling, redness, or edema. ENT: Nares patent. No nasal discharge, no septal abnormalities noted. Tympanic membranes are normal and external auditory canals are clear. Oropharynx with no redness, swelling, or masses, exudates, or evidence of obstruction, uvula midline. Mucous membranes moist. Neck: Trachea midline, no thyromegaly or masses palpated, and no cervical lymphadenopathy. Supple, full range of motion without nuchal rigidity, or vertebral point tenderness. No Meningismus. Chest/axilla: Normal chest wall appearance and motion. Nontender with no deformity. No lesions are appreciated. Cardiovascular: Regular rate and rhythm with a normal S1 and S2. No gallops, murmurs, or rubs. Normal PMI, no JVD. No pulse deficits. Respiratory: Lungs have equal breath sounds bilaterally, clear to auscultation and percussion. No rales, rhonchi or wheezes noted. No increased work of breathing, no retractions or nasal flaring. Abdomen/GI: Soft, non-tender, with normal bowel sounds. No distension or tympany. No guarding or rebound. No evidence of tenderness throughout. Back: No spinal tenderness. No costovertebral tenderness. Full range of motion. Female : Normal external genitalia. Skin: Warm, dry with normal turgor. Normal color with no rashes, no lesions, and no evidence of cellulitis. Psych: Awake, alert, with orientation to person, place and time. Behavior, mood, and affect are within normal limits. 13:20 Musculoskeletal/extremity: ROM: limited active range of motion, in the right arm and right leg, Circulation is intact in all extremities. the right arm and right leg decreased sensation, Compartment Syndrome exam of affected extremity: is normal. Weight bearing: is unable to bear weight, 13:20 Neuro: Orientation: unable to test, Mentation: appropriate for stated age, Memory: no acute changes, Cranial nerves: grossly normal, Cerebellar function: unable to test, Sensation: light touch is decreased in the right arm and right leg, Gait: not tested. Babinski testing is normal, seizure activity, is not displayed by the patient, 13:32 ECG was reviewed by the Attending Physician. [facility] Vital Signs: 12:48 Weight 67.13 kg (M); aa5 13:13 BP 141 / 91; Pulse 105; Resp 20; Temp 97.6; Pulse Ox 100% on R/A; zm 13:28 BP 130 / 72; Pulse 95; Resp 16; Temp 97.7; Pulse Ox 98% on R/A; Pain 0/10; zm 13:43 BP 139 / 67; Pulse 95; Resp 20; Temp 97.5; Pulse Ox 100% on R/A; zm 13:58 BP 116 / 76; Pulse 94; Resp 19; Temp 97.7; Pulse Ox 98% on R/A; Pain 0/10; zm 14:13 BP 125 / 86; Pulse 97; Resp 19; Temp 98.1; Pulse Ox 100% on R/A; Pain 0/10; zm 14:50 BP 117 / 68; Pulse 103; Resp 18; Temp 97.3; Pulse Ox 100% on R/A; Pain 0/10; zm 13:28 Pain Scale: Adult zm 13:58 Pain Scale: Adult zm 14:13 Pain Scale: Adult zm 14:50 Pain Scale: Adult zm NIH Stroke Scale Scores: 12:48 NIHSS Score: 12 cm10 13:20 NIHSS Score: 9 krupa 13:28 NIHSS Score: 5 zm [place] Coma Score: 14:25 Eye Response: spontaneous(4). Motor Response: obeys commands(6). Verbal Response: zm oriented(5). Total: 15. 14:50 Eye Response: spontaneous(4). Motor Response: obeys commands(6). Verbal Response: zm oriented(5). Total: 15. MDM: 12:42 Medical Screening Exam initiated krupa 13:25 Differential diagnosis: CVA, TIA, Dementia, Alzheimer disease, Parkinson disease, krupa metabolic disorder. TNKase (Tenecteplase) Screening: Indications: Definite evidence of stroke, ischemic, embolic, or hypertensive: Yes. Treatment will start within 4.5 hours onset of symptoms: Yes. No evidence of intracranial hemorrhage or CT of head and no evidence of peripheral hemorrhage or recent CVA: Yes. Consent for thrombolytic therapy: Yes. Contraindications: Other: NONE. Data reviewed: vital signs, nurses notes, lab test result(s), EKG, radiologic studies. Consideration of Admission/Observation Patient was admitted/placed on observation. Escalation of care including admission/observation considered. I considered the following discharge prescriptions or medication management in the emergency department Medications were administered in the Emergency Department. See MAR. Test considered but Not performed: MRI: NO MRI BRAIN. Care significantly affected by the following chronic conditions: SEIZURE, RENAL SECONDARY DEHYDRATION. Counseling: I had a detailed discussion with the patient and/or guardian regarding the historical points, exam findings, and any diagnostic results supporting the discharge/admit diagnosis, lab results, radiology results, the need to transfer to another facility, for higher level of care, [facility] does not immediately have the required specialist. 09/06 12:43 Order name: Basic Metabolic Panel; Complete Time: 13:33 [facility] 09/06 12:43 Order name: CBC with Diff; Complete Time: 13:33 krupa 09/06 12:43 Order name: LFT's; Complete Time: 13:33 krupa 09/06 12:43 Order name: Magnesium; Complete Time: 13:33 krupa 09/06 12:43 Order name: NT PRO-BNP; Complete Time: 13:33 krupa 09/06 12:43 Order name: PT-INR; Complete Time: 13:33 09/06 12:43 Order name: Troponin HS; Complete Time: 13:33 09/06 12:43 Order name: CRP; Complete Time: 13:33 [facility] 09/06 12:43 Order name: Lipid Profile; Complete Time: 13:33 [facility] 09/06 13:03 Order name: Glucose, Ancillary Testing; Complete Time: 13:33 [facility] 09/06 12:43 Order name: XRAY Chest (1 view); Complete Time: 14:37 [facility] 09/06 12:43 Order name: CT Stroke Brain w/o Contrast; Complete Time: 13:33 [facility] 09/06 12:43 Order name: CT Neck Angio; Complete Time: 14:37 [facility] 09/06 13:11 Order name: Head Brain Wo Cont; Complete Time: 14:37 [facility] 09/06 13:25 Order name: Head angio; Complete Time: 14:37 [facility] 09/06 12:43 Order name: Cardiac monitoring; Complete Time: 12:53 [facility] 09/06 12:43 Order name: EKG - Nurse/Tech; Complete Time: 12:53 [facility] 09/06 12:43 Order name: IV Saline Lock; Complete Time: 12:54 [facility] 09/06 12:43 Order name: Labs collected and sent; Complete Time: 12:54 [facility] 09/06 12:43 Order name: O2 Per Protocol; Complete Time: 12:54 [facility] 09/06 12:43 Order name: O2 Sat Monitoring; Complete Time: 12:54 [facility] EC:32 Rate is 107 beats/min. Rhythm is regular. QRS [place] is Normal. IA interval is normal. [facility] QRS interval is normal. QT interval is normal. No Q waves. T waves are Normal. No ST changes noted. Clinical impression: Sinus tachycardia and No evidence of ischemia. Interpreted by me. Reviewed by me. Administered Medications: 12:58 Drug: TNK FOR STROKE - Tenecteplase IV (Administer 10 ml NS flush BEFORE and zm AFTER tenecteplase) 17 mg IV at per protocol once; 0.25mg/kg, MAX DOSE 25 mg, IVP over 5 seconds {Co-Signature: cm10 (Cornelia Daniels RN).} Route: IV; Rate: per protocol; Site: left antecubital; 13:28 Follow up: Response: No adverse reaction; IV Status: Completed infusion zm 14:13 Drug: NS 0.9% IV 1000 ml IV at 1000 ml once; to be given as a bolus over 60 minutes zm Route: IV; Rate: 1000 ml; Site: left antecubital; 14:58 Follow up: Response: No adverse reaction; IV Status: Infusion continued upon transfer; IV Intake: 500ml 14:13 Drug: Keppra IV 1000 mg IV at per protocol once Route: IV; Rate: per protocol; Site: right hand; 14:38 Follow up: Response: No adverse reaction; IV Status: Completed infusion; IV Intake: zm 100ml 14:14 Drug: foLIC Acid IVPB 1 mg IVPB once Route: IVPB; Site: left antecubital; zm 14:58 Follow up: Response: No adverse reaction; IV Status: Completed infusion; IV Intake: 10mlzm 14:14 Drug: Famotidine IVP 20 mg IVP once; dilute with 10 mL 0.9% NaCl; give over 2 minutes zm Route: IVP; Site: left antecubital; 14:38 Follow up: Response: No adverse reaction Point of Care Testing: Blood Glucose: 12:51 Blood Glucose: 85 mg/dL; kb4 Ranges: Critical Glucose Levels:Adult <50 mg/dl or >400 mg/dl <40 mg/dl or >180 mg/dl Disposition Summary: 09/06/25 14:37 Transfer Ordered Notes: Transfer Location: [facility] krupa Reason: Higher level of care krupa Condition: Fair krupa Problem: new krupa Symptoms: have improved krupa Accepting Physician: TO [facility](09/06/25 14:51) cm10 Diagnosis - Cerebral infarction, unspecified - ACUTE, RIGHT SIDED HEMIPARESIS, APHASIA krupa Discharge Instructions: - Discharge Summary Sheet Forms: - Medication Reconciliation Form krupa - SBAR form Critical care time excluding procedures: 13:41 Critical care time: Bedside Care: 30 minutes, Consultation: 20 minutes, Family krupa Intervention: 10 minutes. Total time: 60 minutes NIH Stroke Scale - NIH Stroke Score Date: 09/06/2025 Time: 12:48 Total Score = 12 10. Dysarthria (speech clarity - read or repeat words) - 1(Mild to Moderate) 11. Extinction and Inattention (visual/tactile/auditory/spatial/personal) - 0(No abnormality) 1a. Level of Consciousness (LOC) - 0(Alert) 1b. Level of Consciousness (LOC) (Month \T\ Age) - 0(Both) 1c. LOC Commands (Open \T\ Closes Eyes/Thermoplastic Technician) - 0(Both) 2. Best Gaze (Lateral Gaze Paresis) - 1(Partial gaze palsy) 3. Visual Field Loss - 0(No visual loss) 4. Facial Palsy - 1(Minor Paralysis) 5a. Left Arm: Motor (10-second hold) - 0(No drift) 5b. Right Arm: Motor (10-second hold) - 3(No effort against gravity) 6a. Left Leg: Motor (5-second hold - always test supine) - 0(No drift) 6b. Right Leg: Motor (5-second hold - always test supine) - 3(No effort against gravity) 7. Limb Ataxia (finger/nose \T\ heel/hurd - test with eyes open) - 1(Present in one limb) 8. Sensory Loss (pinprick arms/legs/face) - 0(Normal) 9. Best Language: Aphasia (description/naming/reading) - 2(Severe aphasia) Initials: cm10 NIH Stroke Scale - NIH Stroke Score Date: 09/06/2025 Time: 13:20 Total Score = 9 10. Dysarthria (speech clarity - read or repeat words) - 1(Mild to Moderate) 11. Extinction and Inattention (visual/tactile/auditory/spatial/personal) - 0(No abnormality) 1a. Level of Consciousness (LOC) - 0(Alert) 1b. Level of Consciousness (LOC) (Month \T\ Age) - 0(Both) 1c. LOC Commands (Open \T\ Closes Eyes/Thermoplastic Technician) - 0(Both) 2. Best Gaze (Lateral Gaze Paresis) - 0(Normal) 3. Visual Field Loss - 0(No visual loss) 4. Facial Palsy - 0(Normal) 5a. Left Arm: Motor (10-second hold) - 0(No drift) 5b. Right Arm: Motor (10-second hold) - 2(Drift, some effort against gravity) 6a. Left Leg: Motor (5-second hold - always test supine) - 0(No drift) 6b. Right Leg: Motor (5-second hold - always test supine) - 2(Drift, some effort against gravity) 7. Limb Ataxia (finger/nose \T\ heel/hurd - test with eyes open) - 2(Present in two limbs) 8. Sensory Loss (pinprick arms/legs/face) - 1(Mild to moderate loss) 9. Best Language: Aphasia (description/naming/reading) - 1(Mild to moderate aphasia) Initials: krupa NIH Stroke Scale - NIH Stroke Score Date: 09/06/2025 Time: 13:28 Total Score = 5 10. Dysarthria (speech clarity - read or repeat words) - 1(Mild to Moderate) 11. Extinction and Inattention (visual/tactile/auditory/spatial/personal) - 0(No abnormality) 1a. Level of Consciousness (LOC) - 0(Alert) 1b. Level of Consciousness (LOC) (Month \T\ Age) - 0(Both) 1c. LOC Commands (Open \T\ Closes Eyes/Thermoplastic Technician) - 0(Both) 2. Best Gaze (Lateral Gaze Paresis) - 0(Normal) 3. Visual Field Loss - 0(No visual loss) 4. Facial Palsy - 1(Minor Paralysis) 5a. Left Arm: Motor (10-second hold) - 0(No drift) 5b. Right Arm: Motor (10-second hold) - 1(Drift) 6a. Left Leg: Motor (5-second hold - always test supine) - 0(No drift) 6b. Right Leg: Motor (5-second hold - always test supine) - 1(Drift) 7. Limb Ataxia (finger/nose \T\ heel/hurd - test with eyes open) - 0(Absent) 8. Sensory Loss (pinprick arms/legs/face) - 0(Normal) 9. Best Language: Aphasia (description/naming/reading) - 1(Mild to moderate aphasia) Initials: lacho Signatures: Dispatcher [employer] EDMS Corwin Becerra MD MD cha Martinez, Zaina, RN RN zm Cornelia Daniels RN RN cm10 Faiza Sousa RN RN kb4 Cornelia Daniels RN cm10 Corrections: (The following items were deleted from the chart) 12:44 12:44 BASIC METABOLIC PANEL+C.LAB.BRZ ordered. EDMS EDMS 12:44 12:44 CBC+H.LAB.BRZ ordered. EDMS EDMS 12:44 12:44 HEPATIC FUNCTION+C.LAB.BRZ ordered. EDMS EDMS 12:44 12:44 MAGNESIUM+C.LAB.BRZ ordered. EDMS EDMS 12:44 12:44 PROBNP+C.LAB.BRZ ordered. EDMS EDMS 12:44 12:44 PROTIME (+INR)+COAG.LAB.BRZ ordered. EDMS EDMS 12:44 12:44 Troponin High Sensitivity+C.LAB.BRZ ordered. EDMS EDMS 12:44 12:44 C-REACTIVE PROTEIN+C.LAB.BRZ ordered. EDMS EDMS 12:44 12:44 LIPID PROFILE+C.LAB.BRZ ordered. EDMS EDMS 12:44 12:44 Chest Single View+RAD.RAD.BRZ ordered. EDMS EDMS 12:44 12:44 CT-STROKE BRAIN W/O CONTRAST+CT.RAD.BRZ ordered. EDMS EDMS 12:44 12:44 Head Angio+CT.RAD.BRZ ordered. EDMS EDMS 12:44 12:44 Neck Angio+CT.RAD.BRZ ordered. EDMS EDMS 13:11 13:11 Head Brain Wo Cont+CT.RAD.BRZ ordered. EDMS EDMS 13:33 13:18 Rate is 58 beats/min. Rhythm is regular. QRS [place] is Normal. IA interval krupa is normal. QRS interval is normal. QT interval is normal. No Q waves. T waves are Normal. No ST changes noted. Clinical impression: Sinus bradycardia and No evidence of ischemia. Interpreted by me. Reviewed by me. [facility] 14:51 14:37 TO [facility] cm10
--- NOTE | 2025-09-06 14:37 | ER ---
Nurse's Notes [facility] Name: Verónica Andrade Age: 50 yrs Sex: Female : 1975 Arrival Date: 09/06/2025 Time: 12:35 Bed 18 Private MD: Diagnosis: Cerebral infarction, unspecified-ACUTE, RIGHT SIDED HEMIPARESIS, APHASIA Presentation: 09/06 12:34 Chief complaint: EMS states: Right-sided weakness, aphasia, SU. 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 12:35 Method Of Arrival: EMS: [facility] kb4 12:35 Coronavirus screen: Vaccine status: Patient reports being unvaccinated. Client denies [facility] travel out of the [place] in the last 14 days. Ebola Screen: Patient negative for fever greater than or equal to 101.5 degrees Fahrenheit, and additional compatible Ebola Virus Disease symptoms Patient denies exposure to infectious person. Patient denies travel to an Ebola-affected area in the 21 days before illness onset. An acute neurological deficit is present. The charge nurse has been notified. The patients blood glucose was checked before arriving to the hospital and was found to be normal. Initial Sepsis Screen: Does the patient meet any 2 criteria? No. Patient's initial sepsis screen is negative. Does the patient have a suspected source of infection? No. Patient's initial sepsis screen is negative. Risk Assessment: Do you want to hurt yourself or someone else? Patient reports no desire to harm self or others. Onset of symptoms was September 06, 2025 at 12:00. 12:35 Acuity: ROHAN 2 kb4 Triage Assessment: 12:49 The onset of the patients symptoms was September 06, 2025 at 12:00. General: Appears in kb4 no apparent distress. Behavior is calm, cooperative. 15:01 Neuro: Reports. 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: 13:40 unknown zm Stroke Activation: Symptom onset < 3 hours Physician: ED Attending; Name: Dr Becerra; Notified At: 12:34; Arrived At: 12:34 Physician: Mid-Level Provider; Name: ; Notified At: 12:34; Arrived At: Physician: [not used]; Name: ; Notified At: ; Arrived At: Physician: [not used]; Name: ; Notified At: ; Arrived At: Physician: [not used]; Name: ; Notified At: ; Arrived At: Historical: - Allergies: 12:49 Levaquin; kb4 12:49 Lyrica; kb4 - PMHx: 12:49 kidney failure from dehydration; Seizure; GI Issues (Total abdominal hysterectomy); kb4 - PSHx: 12:49 section; Cholecystectomy; GI surgeries; Total abdominal hysterectomy; kb4 - Immunization history:: Adult Immunizations unknown. - Infectious Disease History:: Denies. - Social history:: Smoking status: Patient denies any tobacco usage or history of. - Family history:: not pertinent. Screenin:50 [facility] ED Fall Risk Assessment (Adult) History of falling in the last 3 months, zm including since admission No falls in past 3 months (0 pts) Confusion or Disorientation No (0 pts) Intoxicated or Sedated No (0 pts) Impaired Gait Yes (1 pt) Mobility Assist Device Used Yes (1 pt) Altered Elimination Yes (1 pt) Score/Fall Risk Level 3 or more points = High Risk Oriented to surroundings, Maintained a safe environment, Educated pt \T\ family on fall prevention, incl call for assistance when getting out of bed, Assessed \T\ reinforced patient's understanding of fall precautions, Hourly rounding (assess needs \T\ fall precautionary measures) done, Used ambulatory aids as needed (educated on \T\ assisted with), Used gait belt as appropriate Implemented a Fall Risk Plan of Care, Apply high fall risk patient identification: yellow non skid footwear/ fall signage, Remained w/in arm's length of patient and in sight while toileting, Offered frequent toileting (1:1 observation), Remained with patient while ambulating, Utilized family, sitter, or virtual metalworking specialist as indicated. 13:28 Abuse screen: Denies threats or abuse. Denies injuries from another. Nutritional zm screening: No deficits noted. Tuberculosis screening: No symptoms or risk factors identified. Assessment: 12:50 General: Appears distressed, uncomfortable, Behavior is cooperative. Pain: Denies pain. zm Neuro: Level of Consciousness is awake, alert, obeys commands, Oriented to person, place, time, situation, Decal Applier are weak on right Paralysis in right arm(s) leg(s) Speech is slurred, with expressive aphasia noted, Facial droop on right, Pupils are PERRLA, Intact. 12:50 Cardiovascular: Patient's skin is warm and dry. Respiratory: Airway is patent zm Respiratory effort is even, unlabored, Respiratory pattern is regular, symmetrical. 12:55 VAN Scoring: Arm Drift: Flaccid/no antigravity Visual Disturbance: No visual zm disturbance noted. Aphasia: Expressive aphasia noted. Provider notified of +VAN scoring. Neglect: No neglect noted. [place] Swallow Protocol Exclusion Criteria: Exclusion Criteria Result: Proceed Brief Cognitive Screen What is your name? Normal, Where are you right now? Normal, What year is it? Normal. Oral Mechanism Examination Facial Symmetry: Abnormal Motion: Abnormal Lip Closure: Abnormal Oral Mechanism Result: Abnormal: Pt failed. 3 oz Water Swallow Challenge: Pt able to drink all water without stopping, coughing, choking or throat clearing: No Result: FAIL Notified: Corwin Becerra MD. TNKase (Tenecteplase) Screening: Indications: Definite evidence of stroke, ischemic, embolic, or hypertensive: Yes. Treatment will start within 4.5 hours onset of symptoms: Yes. No evidence of intracranial hemorrhage or CT of head and no evidence of peripheral hemorrhage or recent CVA: Yes. Consent for thrombolytic therapy: Yes. Reassessment:. 13:05 Neuro: Seizure activity noted at this time. Seizure lasted approximately 1 minutes. 14:00 Reassessment: Attempted to call report to [facility] ICU, told they would call me back. 14:36 Reassessment: Report called to WESLEY Callahan at [facility] ICU. 14:50 Reassessment: report given to WESLEY Leonardo with [facility]. Vital Signs: 12:48 Weight 67.13 kg (M); aa5 13:13 BP 141 / 91; Pulse 105; Resp 20; Temp 97.6; Pulse Ox 100% on R/A; zm 13:28 BP 130 / 72; Pulse 95; Resp 16; Temp 97.7; Pulse Ox 98% on R/A; Pain 0/10; zm 13:43 BP 139 / 67; Pulse 95; Resp 20; Temp 97.5; Pulse Ox 100% on R/A; zm 13:58 BP 116 / 76; Pulse 94; Resp 19; Temp 97.7; Pulse Ox 98% on R/A; Pain 0/10; zm 14:13 BP 125 / 86; Pulse 97; Resp 19; Temp 98.1; Pulse Ox 100% on R/A; Pain 0/10; zm 14:50 BP 117 / 68; Pulse 103; Resp 18; Temp 97.3; Pulse Ox 100% on R/A; Pain 0/10; zm 13:28 Pain Scale: Adult zm 13:58 Pain Scale: Adult zm 14:13 Pain Scale: Adult zm 14:50 Pain Scale: Adult zm Jonh Coma Score: 14:25 Eye Response: spontaneous(4). Motor Response: obeys commands(6). Verbal Response: zm oriented(5). Total: 15. 14:50 Eye Response: spontaneous(4). Motor Response: obeys commands(6). Verbal Response: zm oriented(5). Total: 15. NIH Stroke Scale Scores: 12:48 NIHSS Score: 12 cm10 13:20 NIHSS Score: 9 krupa 13:28 NIHSS Score: 5 zm ED Course: 12:35 Maintain EMS IV. Dressing intact. Good blood return noted. Site clean \T\ dry. Gauge \T\ cm 10 site: 22g right hand. Flushed with 10 mL NS. 12:41 Patient arrived in ED. cj3 12:42 Corwin Becerra MD is Attending Physician. krupa 12:49 Triage completed. kb4 12:50 CT Stroke Brain w/o Contrast In Process Unspecified. EDMS 12:50 Arm band placed on right wrist. zm 12:50 Patient has correct armband on for positive identification. Fall risk band placed. Bed zm in low position. Call light in reach. Side rails up X2. Adult w/ patient. 12:50 Client placed on continuous cardiac and pulse oximetry monitoring. NIBP monitoring zm applied. quality assurance monitor final on. Warm blanket given. Verbal reassurance given. 12:50 One-on-one care X 15 minutes. cm10 12:53 EKG done, by ED staff, reviewed by Corwin Becerra MD. em1 12:55 Initial lab(s) drawn, by nc, sent to lab. Inserted saline lock: 18 gauge in left cm10 antecubital area, using aseptic technique. Blood collected. Flushed with 10 mL NS. 12:56 Tamra Daniels, RN is Primary Nurse. zm 12:58 Provided Education on: Need for TNK. cm10 13:00 RN/STEAM TRAP WORKER escort patient out of department to CT scan with cafeteria monitor. cm10 13:05 One-on-one care X 15 minutes. cm10 13:20 XRAY Chest (1 view) In Process Unspecified. EDMS 13:20 One-on-one care X 15 minutes. cm10 13:26 Head angio In Process Unspecified. EDMS 13:27 CT Neck Angio In Process Unspecified. EDMS 13:27 Head Brain Wo Cont In Process Unspecified. EDMS 13:35 One-on-one care X 15 minutes. cm10 13:50 One-on-one care X 15 minutes. cm10 13:54 \T\1323 initiate a transfer with Little [facility] from the [facility]/ eb connected the value analyst production lead for [facility] / administrative approval given by Little Greeen , . Oumar Lizama has accepted the patient in transfer/ report to be called to [phone]. 14:50 No provider procedures requiring assistance completed. Patient transferred, IV remains zm in place. Administered Medications: 12:58 Drug: TNK FOR STROKE - Tenecteplase IV (Administer 10 ml NS flush BEFORE and zm AFTER tenecteplase) 17 mg IV at per protocol once; 0.25mg/kg, MAX DOSE 25 mg, IVP over 5 seconds {Co-Signature: ita (Cornelia Daniels RN).} Route: IV; Rate: per protocol; Site: left antecubital; 13:28 Follow up: Response: No adverse reaction; IV Status: Completed infusion 14:13 Drug: NS 0.9% IV 1000 ml IV at 1000 ml once; to be given as a bolus over 60 minutes zm Route: IV; Rate: 1000 ml; Site: left antecubital; 14:58 Follow up: Response: No adverse reaction; IV Status: Infusion continued upon transfer; zm IV Intake: 500ml 14:13 Drug: Keppra IV 1000 mg IV at per protocol once Route: IV; Rate: per protocol; Site: right hand; 14:38 Follow up: Response: No adverse reaction; IV Status: Completed infusion; IV Intake: zm 100ml 14:14 Drug: foLIC Acid IVPB 1 mg IVPB once Route: IVPB; Site: left antecubital; zm 14:58 Follow up: Response: No adverse reaction; IV Status: Completed infusion; IV Intake: 10mlzm 14:14 Drug: Famotidine IVP 20 mg IVP once; dilute with 10 mL 0.9% NaCl; give over 2 minutes zm Route: IVP; Site: left antecubital; 14:38 Follow up: Response: No adverse reaction Medication: 13:41 VIS not applicable for this client. Point of Care Testing: Blood Glucose: 12:51 Blood Glucose: 85 mg/dL; kb4 Ranges: Intake: 14:38 IV: 100ml; Total: 100ml. 14:58 IV: 500ml; Total: 600ml. zm 14:58 IV: 10ml; Total: 610ml. Outcome: 14:37 ER care complete, transfer ordered by . [facility] 14:50 Transferred by helicopter [facility]. to other acute care facility: [facility] ICU. Transfer form completed. X-rays sent w/ patient. 14:50 Condition: stable 14:50 Instructed on the need for transfer, Demonstrated understanding of instructions, 14:51 Patient left the ED. cm10 NIH Stroke Scale - NIH Stroke Score Date: 09/06/2025 Time: 12:48 Total Score = 12 10. Dysarthria (speech clarity - read or repeat words) - 1(Mild to Moderate) 11. Extinction and Inattention (visual/tactile/auditory/spatial/personal) - 0(No abnormality) 1a. Level of Consciousness (LOC) - 0(Alert) 1b. Level of Consciousness (LOC) (Month \T\ Age) - 0(Both) 1c. LOC Commands (Open \T\ Closes Eyes/Site Inspector) - 0(Both) 2. Best Gaze (Lateral Gaze Paresis) - 1(Partial gaze palsy) 3. Visual Field Loss - 0(No visual loss) 4. Facial Palsy - 1(Minor Paralysis) 5a. Left Arm: Motor (10-second hold) - 0(No drift) 5b. Right Arm: Motor (10-second hold) - 3(No effort against gravity) 6a. Left Leg: Motor (5-second hold - always test supine) - 0(No drift) 6b. Right Leg: Motor (5-second hold - always test supine) - 3(No effort against gravity) 7. Limb Ataxia (finger/nose \T\ heel/hurd - test with eyes open) - 1(Present in one limb) 8. Sensory Loss (pinprick arms/legs/face) - 0(Normal) 9. Best Language: Aphasia (description/naming/reading) - 2(Severe aphasia) Initials: cm10 NIH Stroke Scale - NIH Stroke Score Date: 09/06/2025 Time: 13:20 Total Score = 9 10. Dysarthria (speech clarity - read or repeat words) - 1(Mild to Moderate) 11. Extinction and Inattention (visual/tactile/auditory/spatial/personal) - 0(No abnormality) 1a. Level of Consciousness (LOC) - 0(Alert) 1b. Level of Consciousness (LOC) (Month \T\ Age) - 0(Both) 1c. LOC Commands (Open \T\ Closes Eyes/Site Inspector) - 0(Both) 2. Best Gaze (Lateral Gaze Paresis) - 0(Normal) 3. Visual Field Loss - 0(No visual loss) 4. Facial Palsy - 0(Normal) 5a. Left Arm: Motor (10-second hold) - 0(No drift) 5b. Right Arm: Motor (10-second hold) - 2(Drift, some effort against gravity) 6a. Left Leg: Motor (5-second hold - always test supine) - 0(No drift) 6b. Right Leg: Motor (5-second hold - always test supine) - 2(Drift, some effort against gravity) 7. Limb Ataxia (finger/nose \T\ heel/hurd - test with eyes open) - 2(Present in two limbs) 8. Sensory Loss (pinprick arms/legs/face) - 1(Mild to moderate loss) 9. Best Language: Aphasia (description/naming/reading) - 1(Mild to moderate aphasia) Initials: krupa NIH Stroke Scale - NIH Stroke Score Date: 09/06/2025 Time: 13:28 Total Score = 5 10. Dysarthria (speech clarity - read or repeat words) - 1(Mild to Moderate) 11. Extinction and Inattention (visual/tactile/auditory/spatial/personal) - 0(No abnormality) 1a. Level of Consciousness (LOC) - 0(Alert) 1b. Level of Consciousness (LOC) (Month \T\ Age) - 0(Both) 1c. LOC Commands (Open \T\ Closes Eyes/Site Inspector) - 0(Both) 2. Best Gaze (Lateral Gaze Paresis) - 0(Normal) 3. Visual Field Loss - 0(No visual loss) 4. Facial Palsy - 1(Minor Paralysis) 5a. Left Arm: Motor (10-second hold) - 0(No drift) 5b. Right Arm: Motor (10-second hold) - 1(Drift) 6a. Left Leg: Motor (5-second hold - always test supine) - 0(No drift) 6b. Right Leg: Motor (5-second hold - always test supine) - 1(Drift) 7. Limb Ataxia (finger/nose \T\ heel/hurd - test with eyes open) - 0(Absent) 8. Sensory Loss (pinprick arms/legs/face) - 0(Normal) 9. Best Language: Aphasia (description/naming/reading) - 1(Mild to moderate aphasia) Initials: Signatures: Dispatcher [employer] EDMS Corwin Becerra MD MD cha Martinez, Eric em1 Frances Pan, WESLEY RN aa5 Little Mtz Zaina, RN RN Jeremiah, Cornelia, RN RN cm10 Faiza Sousa RN RN [email or web address] Marie Vigil 3 Cornelia Dnaiels RN cm10 Corrections: (The following items were deleted from the chart) 14:25 13:43 BP 139 / 67; Pulse 95bpm; Resp 26bpm; Pulse Ox 100% RA; Temp 97.5F; zm zm 14:26 14:25 BP 125 / 86; Pulse 97bpm; Resp 19bpm; Pulse Ox 100% RA; Temp 98.1F; Pain zm 0/10, Adult; zm
[2025-09-06 17:34] VITALS: BP 125/86; TEMP 98.1; O2SAT 100
== END 2025-09-06 14:51 | disposition short-term general hospital (02) ==
LOC: ER 12:35
DX: I63.9 Cerebral infarction, unspecified (principal); R47.01 Aphasia; R29.712 NIHSS score 12
CPT/HCPCS: 92977; 93005; 85025; 80048; 36415; 83735; 85610; 80061; 82947; 80076; 84484; 83880; 86140; 70450 ×2; 70496; 70498; 71045; 99291; 99292; Q9967; J3101; J1953; J7030